=== PATIENT | female | born 1990 | race African-American/Black ===

== ENCOUNTER 2022-05-03 00:30 | Emergency (ER) | payer SELFPAY ==
[~2022-05-03] VITALS: Ht 157.5 cm; Wt 59.0 kg
[2022-05-03] MEDS ORDERED: TETANUS, DIPHTHERIA, PERTUSSIS VAC/PF 0.5ML (>10YR OLD) IM ONE (01:30)
[2022-05-03] MEDS ORDERED: CEFAZOLIN 1000MG PREMIX 50 ML IV ONE (01:30)
[2022-05-03] MEDS ORDERED: LIDOCAINE HCL 1% 20ML VIAL (Pyxis) INJ INFIL ONE (01:30)
[2022-05-03 03:10] LABS: HEMATOCRIT 31.5 % (36.0-48.0); HEMOGLOBIN 10.8 g/dL (12.0-16.0); MEAN CORPUSCULAR HEMOGLOBIN 35.3 pg (28.0-32.0); MEAN CORPUSCULAR VOLUME 103.4 fL (81.0-99.0); PLATELET 95 x1000/uL (130-400); RED BLOOD CELL COUNT 3.04 mill/uL (4.2-5.4)
[2022-05-03 03:15] LABS: CHLORIDE 111 mEq/L (98-107)
[2022-05-03 03:59] LABS: ETHANOL BLOOD 452 mg/dL
[2022-05-03 08:05] VITALS: BP 101/66
== END 2022-05-03 09:08 | disposition home or self-care (01) ==
LOC: ER 00:30
DX: S01.112A Laceration without foreign body of left eyelid and periocular area, initial encounter (principal); F10.229 Alcohol dependence with intoxication, unspecified; Y90.8 Blood alcohol level of 240 mg/100 ml or more; Y08.89XA Assault by other specified means, initial encounter; Y93.89 Activity, other specified; Y92.89 Other specified places as the place of occurrence of the external cause
CPT/HCPCS: 12011; 36415; 70450; 70486; 80053; 80320; 83690; 85027; 90471; 90715; 96365; 99291; J3490; G0480